=== PATIENT | female | born 1965 | race Caucasian/White ===

== ENCOUNTER → 2020-01-05 | Outpatient (CLI) | payer MEDICARE, OTHER ==
[~2020-01-05] MED LIST: ALDACTONE 100M100 MG PO; ATIVAN 0.50.5 MG/TAB PO; INDERAL LA 80MG80 MG PO; INDERAL40 MG PO; K-DUR20 MEQ PO; KLONOPIN 0.5MG0.5 MG PO; MULTI VITAMINS1 TAB PO; NATURAL MAGNES200 MG PO; PROAIR HFA0.09 MG/AC IH; PROTONIX 40MG T40 MG PO
== END ==
LOC: MC.RAD 14:52
DX: Z12.31 Encounter for screening mammogram for malignant neoplasm of breast (principal)